=== PATIENT | female | born 1980 | race Caucasian/White ===

== ENCOUNTER → 2019-04-03 | Outpatient (CLI) | payer OTHER ==
[~2019-04-03] MED LIST: ADVIL200 MG PO; AMBIEN10 M1 PO; COLACE100 MG PO; IRON325 M1 PO; LEVOFLOXACIN500 MG PO; MOTRIN800 MG PO; PERCOCET 325 MG1 TA2 PO; PROMETRIUM100 MG PO; SLEEP AID25 MG PO; ZANTAC150 MG PO; ZOFRAN ODT4 MG SL
== END | disposition home or self-care (01) ==
LOC: US 13:00
DX: N93.9 Abnormal uterine and vaginal bleeding, unspecified (principal)

== ENCOUNTER 2019-12-28 11:42 | Emergency (ER) | payer OTHER ==
[~2019-12-28] VITALS: Wt 127.0 kg
== END 2019-12-28 16:00 | disposition expired ==
LOC: ED 11:42
DX: I46.9 Cardiac arrest, cause unspecified (principal); Z79.899 Other long term (current) drug therapy